=== PATIENT | female | born 1950 | race Hispanic/Latino ===

== ENCOUNTER 2024-04-21 14:54 | Emergency (ER) | payer MEDICARE ==
[~2024-04-21] VITALS: Ht 152.4 cm; Wt 70.8 kg
[2024-04-21 16:00] VITALS: PULSE 88; RESP 16; TEMP 97.7; O2SAT 98
[2024-04-21] MEDS ORDERED: NAPROXEN250 MG PO (16:56)
== END 2024-04-21 17:05 | disposition home or self-care (01) ==
LOC: ER 16:57
DX: M25.562 Pain in left knee (principal); M19.09 Primary osteoarthritis, other specified site
CPT/HCPCS: 99283